=== PATIENT | female | born 1985 ===

== ENCOUNTER 2019-10-12 15:45 | Observation (INO) | payer SELFPAY | END 2019-10-12 16:45 | disposition home or self-care (01) | LOC: MW.OB 15:45 | PROVIDERS: ADMIT Obstetrics & Gynecology; ATTEND Obstetrics & Gynecology | DX: O48.0 Post-term pregnancy (principal); Z3A.40 40 weeks gestation of pregnancy | CPT/HCPCS: 59025 ==